=== PATIENT | female | born 1985 | race Caucasian/White ===

== ENCOUNTER 2017-01-22 07:18 | Emergency (ER) | payer SELFPAY ==
[2017-01-22 07:35] VITALS: BP 141/97
--- NOTE | 2017-01-22 08:05 | UC ---
Bhavesh Knapp [place], scribed for [facility] MD on 01/22/17 at 0754 . General HPI - HPI Summary HPI Summary: In Room note: Patient is a 31 y/o female who presents to the with nausea, vomiting, and diarrhea for a couple of days. She reports a fever, but denies urinary sx or back pain. She has vomited twice and had diarrhea once this morning. Pt denies ever being hospitalized. note: VSS, afebrile, elevated bp, pt is not on anti-hypertensive medication, pulse ox : 98; occasional EtOH, former smoker, depression, pt requesting a work note. Visit hx: previous episodes of vomiting and diarrhea. Nurses note: pt has been vommiting and loose stool for 2 days. pt cannot keep anything down. she states her son had the same thing that he got for daycare. pt states she does not want to go to work and needs a doctors note because her employer is requesting it. - History of Current Complaint Chief Complaint: UCGI Stated Complaint: V&D, CONGESTION Time Seen by Provider: 01/22/17 07:38 Hx Obtained From: Patient Onset/Duration: Gradual Onset, Lasting Days, Still Present Timing: Constant Onset Severity: Moderate Current Severity: Moderate Associated Signs & Symptoms: Positive: Diarrhea, Fever, Nausea, Vomiting - Allergy/Home Medications Allergies/Adverse Reactions: Allergies Allergy/AdvReac Type Severity Reaction Status Date / Time Penicillins [PCN] Allergy Severe Rash Verified 07/03/16 10:22 ginko biloba Allergy lip Uncoded 07/03/16 10:22 swelling Home Medications: Home Medications [place] 01/22/17 [History] PMH/Surg Hx/FS Hx/Imm Hx Endocrine History Of: Denies: Diabetes, Thyroid Disease Cardiovascular History Of: Denies: Cardiac Disorders, Hypertension Respiratory History Of: Denies: COPD, Asthma GI/ History Of: Denies: Ulcer Psychological History Of: Reports: Anxiety - Surgical History Surgical History: None - Family History Known Family History: Positive: Hypertension, Diabetes, Other - brother with allergic, "random swelling" - Social History Alcohol Use: Occasionally Substance Use Type: None Smoking Status (MU): Former Smoker Type: Cigarettes Amount Used/How Often: 1 pk/3 days Length of Time of Smoking/Using Tobacco: 5+ years Have You Smoked in the Last Year: No - Immunization History Most Recent Influenza Vaccination: 2010 Most Recent Tetanus Shot: 2013 Most Recent Pneumonia Vaccination: unknown Review of Systems Constitutional: Fever - Subjective. Gastrointestinal: Vomiting, Diarrhea, Other - Nausea. Genitourinary: Negative All Other Systems Reviewed And Are Negative: Yes Physical Exam Triage Information Reviewed: Yes Appearance: Well-Appearing, No Pain Distress, Obese Vital Signs: Initial Vital Signs Temp 97.5 F 01/22/17 07:30 Pulse 76 01/22/17 07:30 Resp 16 01/22/17 07:30 BP 141/97 01/22/17 07:30 Pulse Ox 98 01/22/17 07:30 Vital Signs Reviewed: Yes Eyes: Positive: Conjunctiva Clear ENT: Positive: Hearing grossly normal, Pharynx normal, TMs normal. Negative: Muffled/hoarse voice Neck: Positive: Supple, No Lymphadenopathy Respiratory: Positive: Chest non-tender, Lungs clear, Normal breath sounds, No respiratory distress Cardiovascular: Positive: RRR, No Murmur Abdomen Description: Positive: Nontender, No Organomegaly, Soft. Negative: Peritoneal Signs Bowel Sounds: Positive: Present Musculoskeletal: Positive: Strength Intact Neurological: Positive: Alert Psychological: Positive: Age Appropriate Behavior Skin: Negative: rashes Course/Dx - Course Course Of Treatment: Medications have been included in the original chart and reviewed. Discussed condition with pt and expected resolution in 48 hours. She should recheck it for new sx including temperature or pain. Hypertensive BP reading (>=140/90); patient referred to PCP within 1 day-4 wks for follow-up - Differential Dx - Multi-Symptom Provider Diagnoses: gastroenteritis Discharge - Discharge Plan Condition: Stable Disposition: HOME Patient Education Materials: Gastroenteritis (ED), Acute Nausea and Vomiting ( ED) Forms: *Work Release Referrals: [facility] [place] [facility] [place]Outside] Additional Instructions: Thank you for helping us improve patient care by filling out the My Point Survey. Your blood pressure reading today was 141/97, indicating HYPERTENSION. Establish with a new primary care provider and follow-up within 4 weeks for blood pressure readings and further evaluation. If you cant find a provider, try to check your blood pressure on your own and see if its above 120/80. If so , follow up for further evaluation and treatment. The documentation as recorded by the Bhavesh ramires Salem accurately reflects the service I personally performed and the decisions made by me, Daniel Hurt MD.
== END 2017-01-22 08:06 | disposition home or self-care (01) ==
LOC: UCEAST 07:18
DX: K52.9 Noninfective gastroenteritis and colitis, unspecified (principal); F17.210 Nicotine dependence, cigarettes, uncomplicated
CPT/HCPCS: 99211; G0463

== ENCOUNTER 2017-03-27 09:06 | Emergency (ER) | payer SELFPAY ==
[2017-03-27 09:12] VITALS: BP 132/95
[2017-03-27] MEDS ORDERED: methylPREDNISolone 125 MG* 2 ML VIAL IM ONE (09:26)
[2017-03-27] MEDS ORDERED: diPHENhydraMINE IV* 50 MG/ML 1 ml VIAL (BENADRYL) IM ONE (09:27)
[2017-03-27] MEDS ORDERED: Famotidine TAB* 20 MG PO ONE (09:27)
--- NOTE | 2017-03-27 09:31 | UC ---
Allergic Reaction HPI - HPI Summary HPI Summary: 31 female with hx of allergic reactions reports swelling in bottom lip and beginning to feel slightly "itchy," in hands/arms. States the tongue is beginning to feel tingly, but not swollen. Began this morning. Took Benadryl this am 25mg. Does not know what the reaction is from. No new meds, foods or use of lotions/soaps/detergents. Frequent visits for lip swelling treated with Anti-histamine, Prednisone and Benadryl. Given epi first episode however patient hated how it made her feel and symptoms were more severe. Knows now to receive treatment before symptoms progress and worsen. Denies breathing problems. Breathing "tight" but can breath "pretty good." "Throat fine." PMHx of depression and PCOS however only taking Latuda at this time. - History of Current Complaint Chief Complaint: UCAllergicReaction Stated Complaint: ALLERGIC REACTION Time Seen by Provider: 03/27/17 09:18 Hx Obtained From: Patient Hx Last Menstrual Period: 02/25/17 ?: No Onset/Duration: Sudden Onset Severity Initially: Mild Severity Currently: Mild Pain Scale Used: 0-10 Numeric Character: Swelling - of half of bottom lip Aggrevating Factor(s): Nothing Alleviating Factor(s): OTC Meds - benadryl 25mg Associated Signs And Symptoms: Positive: Rash - Related Hx Possible Reaction To: Other: - unknown - Allergies/Home Medications Allergies/Adverse Reactions: Allergies Allergy/AdvReac Type Severity Reaction Status Date / Time Penicillins [PCN] Allergy Severe Rash Verified 03/27/17 09:11 ginko biloba Allergy lip Uncoded 03/27/17 09:11 swelling Home Medications: Home Medications Lurasidone HCl [Latuda] 1 tab PO DAILY 03/27/17 [History Confirmed 03/27/17] diPHENhydraMINE PO* [Benadryl PO 25 MG TAB*] 1 tab PO Q4HR PRN 03/27/17 [ History Confirmed 03/27/17] PMH/Surg Hx/FS Hx/Imm Hx - Additional Past Medical History Additional PMH: Denies HTN, DM and asthma. Admits to Depression and PCOS Hx - Surgical History Surgical History: None - Family History Known Family History: Positive: Hypertension, Diabetes, Other - brother with allergic, "random swelling" - Social History Alcohol Use: Occasionally Substance Use Type: None Smoking Status (MU): Former Smoker Type: Cigarettes Amount Used/How Often: 1 pk/3 days Length of Time of Smoking/Using Tobacco: 5+ years Have You Smoked in the Last Year: No - Immunization History Most Recent Influenza Vaccination: 2010 Most Recent Tetanus Shot: 2013 Most Recent Pneumonia Vaccination: unknown Vaccination Up to Date: Yes Review of Systems Constitutional: Negative Skin: Rash Eyes: Negative ENT: Other - some swelling of bottom lip Respiratory: Negative Cardiovascular: Negative Gastrointestinal: Negative Musculoskeletal: Negative Psychological: Anxious All Other Systems Reviewed And Are Negative: Yes Physical Exam Triage Information Reviewed: Yes Appearance: Well-Appearing - appears anxious, No Pain Distress, Well-Nourished, Obese Vital Signs: Initial Vital Signs Temp 97.7 F 03/27/17 09:07 Pulse 88 03/27/17 09:07 Resp 18 03/27/17 09:07 BP 132/95 03/27/17 09:07 Pulse Ox 100 03/27/17 09:07 Vital Signs Reviewed: Yes Eyes: Positive: Conjunctiva Clear ENT: Positive: Hearing grossly normal, Pharynx normal - no edema of uvula or tongue at this time, TMs normal, Other: - edema of left side of lower lip. no swelling of eyes of rest of face noted. patent airway. Negative: Tonsillar swelling, Tonsillar exudate, Trismus, Muffled/hoarse voice Neck: Positive: Supple, Nontender, No Lymphadenopathy Respiratory: Positive: Chest non-tender, Normal breath sounds Cardiovascular: Positive: RRR, No Murmur, Pulses Normal, Brisk Capillary Refill Bowel Sounds: Positive: Present Musculoskeletal: Positive: Strength Intact, ROM Intact, No Edema Neurological: Positive: Alert Psychological: Positive: Age Appropriate Behavior Skin: Positive: rashes - some mild urticaria/erythema noted on upper extremities Re-Evaluation - Re-Evaluation First Eval Re-Evaluation Time: 10:10 Change: Improved Comment: patient is feeling better and symptoms have not worsened Allergic Reaction Course/Dx - Course Course Of Treatment: unclear etiology; allergic reaction, localized, v. angioedema. given steroid and benadryl IM, along with famotidine orally. patient was feeling better. will continue these medications at home for 5-7 days. States her lip usually decreases in size after 3 days. waiting for her insurance to kick in within the next 2 weeks to schedule an appointment with press cleaner. Aware of worsening signs and symptoms and to return immediately if symptoms persist, worsen or new symptoms develop. - Differential Dx/Diagnosis Differential Diagnosis/HQI/PQRI: Anaphylaxis, Angioedema, Local Allergic Reaction, Urticaria Provider Diagnoses: local allergic reaction, angioedema Discharge - Discharge Plan Condition: Stable Disposition: HOME Prescriptions: Famotidine TAB* [Pepcid 20 MG TAB*] 20 mg PO DAILY #5 tab diPHENhydraMINE PO* [Benadryl PO 25 MG TAB*] 25 mg PO BID #10 tab predniSONE TAB* [Deltasone TAB*] 40 mg PO DAILY #10 tab Patient Education Materials: General Allergic Reaction (ED), Angioedema (ED) Referrals: No Primary Care Phys,NOPCP [Primary Care Provider] - [facility] [place] [facility] [Outside] Additional Instructions: Take medications as prescribed for the next 5-7 days. Recommend taking prednisone steroid in the morning as it can keep you awake. If new symptoms develop or symptoms persist/worsen please return to UC or ED immediately. Follow up with PCP and press cleaner as soon as you are able.
== END 2017-03-27 10:13 | disposition home or self-care (01) ==
LOC: UCEAST 09:06
DX: T78.40XA Allergy, unspecified, initial encounter (principal); T78.3XXA Angioneurotic edema, initial encounter; Z87.891 Personal history of nicotine dependence; F32.9 Major depressive disorder, single episode, unspecified
CPT/HCPCS: 96372; 99212; A9270-GY; G0463; J1200; J2930

== ENCOUNTER 2018-02-25 14:38 | Emergency (ER) | payer OTHER ==
[2018-02-25 15:28] VITALS: BP 125/91
--- NOTE | 2018-02-25 16:00 | UC ---
Skin Complaint HPI - HPI Summary HPI Summary: Seen in for painful sores on abdomen 02/22/17, diagnosed as infection and treated with TMP-SMX. After starting the antibiotics pt developed red, sore, weeping rash in groin folds and under abdominal crease. Has also had smaller painful bumps come out near armpits. Thinks the abdominal sores look a little better. No new rashes. Swab of sore was positive for MRSA, she was directed to come back for recheck. - History of Current Complaint Chief Complaint: UCRash Time Seen by Provider: 02/25/18 15:34 Stated Complaint: FOLLOW UP Hx Obtained From: Patient Hx Last Menstrual Period: January 24, 2018 ?: No Onset/Duration: Gradual Onset, Lasting Days Timing: Constant Onset Severity: Mild Current Severity: Mild Pain Intensity: 2 Location: Discrete Character: Redness, Painful Aggravating Factor(s): Touch Associated Signs & Symptoms: Positive: Rash, Drainage - Allergy/Home Medications Allergies/Adverse Reactions: Allergies Allergy/AdvReac Type Severity Reaction Status Date / Time Penicillins Allergy Rash Verified 02/25/18 15:28 ginko biloba Allergy lip Uncoded 02/25/18 15:28 swelling Home Medications: Home Medications Norgestimate-Ethinyl Estradiol [Ortho-Cyclen 28 Tablet] 1 tab PO DAILY 02/25/18 [History Confirmed 02/25/18] Review of Systems Constitutional: Negative Skin: Rash Eyes: Negative ENT: Negative Respiratory: Negative Cardiovascular: Negative Gastrointestinal: Negative Genitourinary: Negative Motor: Negative Neurovascular: Negative Musculoskeletal: Negative Neurological: Negative Psychological: Negative Is Patient Immunocompromised?: No All Other Systems Reviewed And Are Negative: Yes PMH/Surg Hx/FS Hx/Imm Hx Previously Healthy: Yes - Surgical History Surgical History: None - Family History Known Family History: Positive: Hypertension, Diabetes, Other - brother with allergic, "random swelling" - Social History Lives: With Family Alcohol Use: Occasionally Substance Use Type: None Smoking Status (MU): Former Smoker Type: Cigarettes Amount Used/How Often: 1 pk/3 days Length of Time of Smoking/Using Tobacco: 5+ years Have You Smoked in the Last Year: No - Immunization History Most Recent Influenza Vaccination: 2010 Most Recent Tetanus Shot: 2013 Most Recent Pneumonia Vaccination: unknown Vaccination Up to Date: Yes Physical Exam Triage Information Reviewed: Yes Appearance: Well-Appearing, No Pain Distress, Obese Vital Signs: Initial Vital Signs Temp 98.8 F 02/25/18 15:24 Pulse 72 02/25/18 15:24 Resp 12 02/25/18 15:24 BP 125/91 02/25/18 15:24 Pulse Ox 100 02/25/18 15:24 Vital Signs Reviewed: Yes Eye Exam: Normal Eyes: Positive: Conjunctiva Clear ENT Exam: Normal ENT: Positive: Normal ENT inspection, Hearing grossly normal, Pharynx normal, TMs normal Dental Exam: Normal Neck exam: Normal Neck: Positive: Supple, Nontender, No Lymphadenopathy Respiratory Exam: Normal Respiratory: Positive: Chest non-tender, Lungs clear, Normal breath sounds, No respiratory distress, No accessory muscle use Cardiovascular Exam: Normal Cardiovascular: Positive: RRR, No Murmur Abdomen Description: Positive: Nontender, Soft Musculoskeletal Exam: Normal Neurological Exam: Normal Neurological: Positive: Alert Psychological Exam: Normal Skin Exam: Other - Healing abscess L lower abd with open sore, slightly oozing. R lower abd firm red 2cm swelling without drainage. Under pannus and in groil folds extensive red skin with erosions and weeping, fairly uniform, with some satellite lesions Course/Dx - Diagnoses Provider Diagnoses: MRSA skin infections, healing. intertrigo in upper groin and under pannus. Eleavted BP due to discomfort Discharge - Sign-Out/Discharge Documenting (check all that apply): Discharge/Admit/Transfer - Discharge Plan Condition: Stable Disposition: HOME Prescriptions: Fluconazole 100 MG TAB* [Diflucan 100 MG TAB*] 100 mg PO SEE INSTRUCTIONS #4 tab Patient Education Materials: Abscess (ED), Skin Yeast Infection (ED), MRSA ( Methicillin-Resistant Staphylococcus Aureus) (ED) Referrals: [facility] [place] [facility] [Outside] Additional Instructions: In addition to the pills, I recommend you treat your skin fold rashes with an antifungal cream and/or powder. Make sure you are drying the areas well after bathing -- use a behavioral science chair if needed. For the MRSA infection, simply finish the bactrim and allow the wounds to heal. Once the skin is fully closed, you can do once-weekly baths with the chlorhexadine gluconate soap. Taking a daily zinc supplement might help as well. Come back at any time if you develop spreading redness, fever, or worsening pain. - Billing Disposition and Condition Condition: STABLE Disposition: Home
== END 2018-02-25 15:59 | disposition home or self-care (01) ==
LOC: UCEAST 14:38
DX: L02.211 Cutaneous abscess of abdominal wall (principal); B95.62 Methicillin resistant Staphylococcus aureus infection as the cause of diseases classified elsewhere; L30.4 Erythema intertrigo; R03.0 Elevated blood-pressure reading, without diagnosis of hypertension; Z88.0 Allergy status to penicillin; Z82.49 Family history of ischemic heart disease and other diseases of the circulatory system; Z83.3 Family history of diabetes mellitus; Z87.891 Personal history of nicotine dependence
CPT/HCPCS: 99212; G0463

== ENCOUNTER 2018-03-20 16:09 | Emergency (ER) | payer OTHER ==
[2018-03-20 16:37] VITALS: BP 148/108
--- NOTE | 2018-03-20 17:57 | UC ---
FLU HPI - HPI Summary HPI Summary: Patient is a 32-year-old otherwise healthy female presenting to the with complaint of extreme fatigue 3 days. Denies any history of anemia. However, she was diagnosed with MRSA approximately 4 weeks ago and was placed on Bactrim 1 week. The MRSA was due to an abscess and she did not have sepsis during this time. She denies any fevers, sweats, chills. She denies any chest pain or shortness of breath. She is not taking any medications at this time. Patient is obese. Also with a history of mono several years prior. Denies any sore throat. Symptoms are aggravated with nothing and alleviated with nothing. She states she was fatigued yesterday, however today was the worst - History of Current Complaint Chief Complaint: UCGeneralIllness Stated Complaint: FATIGUE Time Seen by Provider: 03/20/18 17:00 Hx Obtained From: Patient Hx Last Menstrual Period: 03/03/18 ?: No Onset/Duration: Sudden Onset Severity Currently: Moderate Severity Initially: Moderate Pain Intensity: 0 Pain Scale Used: 0-10 Numeric Associated Signs & Symptoms: Positive: Negative - Risk Factors Influenza Risk Factors: Negative - Allergy/Home Medications Allergies/Adverse Reactions: Allergies Allergy/AdvReac Type Severity Reaction Status Date / Time Penicillins Allergy Rash Verified 03/20/18 16:37 ginko biloba Allergy lip Uncoded 03/20/18 16:37 swelling PMH/Surg Hx/FS Hx/Imm Hx Previously Healthy: Yes - Surgical History Surgical History: None Surgery Procedure, Year, and Place: denies - Family History Known Family History: Positive: Hypertension, Diabetes, Other - brother with allergic, "random swelling" - Social History Occupation: Employed Full-time Lives: With Family Alcohol Use: Occasionally Substance Use Type: None Smoking Status (MU): Former Smoker Type: Cigarettes Amount Used/How Often: 1 pk/3 days Length of Time of Smoking/Using Tobacco: 5+ years Have You Smoked in the Last Year: No - Immunization History Most Recent Influenza Vaccination: 2010 Most Recent Tetanus Shot: 2013 Most Recent Pneumonia Vaccination: unknown Vaccination Up to Date: Yes Review of Systems Constitutional: Fatigue Skin: Negative Eyes: Negative Respiratory: Negative Cardiovascular: Negative Gastrointestinal: Negative Genitourinary: Negative Motor: Negative Neurological: Negative Psychological: Negative Is Patient Immunocompromised?: No All Other Systems Reviewed And Are Negative: Yes Physical Exam Triage Information Reviewed: Yes Appearance: Obese - tearful on exam Vital Signs: Initial Vital Signs Temp 98.3 F 03/20/18 16:32 Pulse 77 03/20/18 16:32 Resp 20 03/20/18 16:32 BP 148/108 03/20/18 16:32 Pulse Ox 100 03/20/18 16:32 Vital Signs Reviewed: No Eye Exam: Normal Eyes: Positive: Conjunctiva Clear Dental Exam: Normal Neck exam: Normal Neck: Positive: Supple, Nontender, No Lymphadenopathy Respiratory Exam: Normal Respiratory: Positive: Chest non-tender, Lungs clear, Normal breath sounds Cardiovascular Exam: Normal Cardiovascular: Positive: RRR Musculoskeletal Exam: Normal Musculoskeletal: Positive: Strength Intact Neurological Exam: Normal Neurological: Positive: Alert Psychological: Positive: Normal Response To Family Skin Exam: Normal Flu Course/Dx - Course Course Of Treatment: During the course of treatment, the patient is evaluated for extreme fatigue. I have offered a mono test to which she declines as this will not change her course of treatment. She denies any abdominal pain, urinary symptoms, back pain, fevers, sweats, chills, chest pain or shortness of breath. This likely could be anemia, but she does not have a history of such and denies any extreme vaginal bleeding. She states she took in a home test yesterday which was negative. She states other than her extreme fatigue, she denies any other symptoms. She endorses some body aches yesterday , but denies this today. I have stated this is likely due to a viral illness and is most likely not related to her MRSA. Her vital signs are stable other than a slightly elevated high blood pressure which is likely secondary to anxiety during her visit. I will give her a note for work 2 days but she will follow-up with her PCP or return to the ED if she develops fevers, sweats, chills, bleeding, worsening fatigue or any additional symptoms. She agrees with this plan and is okay for discharge at this time. - Differential Dx/Diagnosis Provider Diagnoses: Fatigue Discharge - Sign-Out/Discharge Documenting (check all that apply): Patient Departure - Discharge Plan Condition: Stable Disposition: HOME Patient Education Materials: Fatigue (ED) Forms: *Work Release Referrals: No Primary Care Phys,NOPCP [Primary Care Provider] - Additional Instructions: Please follow up with your PCP If you develop fevers, sweats, chills, worsening body aches or other symptoms, go to the ED Sleep as much as possible. Drink plenty of fluids Do not take in excess caffeine - Billing Disposition and Condition Condition: STABLE Disposition: Home
== END 2018-03-20 17:30 | disposition home or self-care (01) ==
LOC: UCEAST 16:09
DX: R53.83 Other fatigue (principal); E66.9 Obesity, unspecified; Z88.0 Allergy status to penicillin; Z91.048 Other nonmedicinal substance allergy status; Z87.891 Personal history of nicotine dependence
CPT/HCPCS: 99211; G0463

== ENCOUNTER 2019-09-10 07:57 | Emergency (ER) | payer OTHER ==
[2019-09-10] MEDS ORDERED: diPHENhydraMINE IV* 50 MG/ML 1 ml VIAL (BENADRYL) IM ONE ×2 (08:08→08:12)
[2019-09-10] MEDS ORDERED: methylPREDNISolone 125 MG* 2 ML VIAL IM ONE (08:09)
--- NOTE | 2019-09-10 08:10 | UC ---
Allergic Reaction HPI - HPI Summary HPI Summary: Arrives with upper and lower lip swelling. Currently taking cephalexin for dental infection, 2 doses yesterday. Hx of rash and swelling with past penicillin, and anaphylaxis in the past with ginko biloba. She did have a dental cleaning yesterday in addition to beginning cephalexin. She has had evaluation in the past and was negative for sleep apnea. No shortness of breath or chest pain. - History of Current Complaint Stated Complaint: SWOLLEN MOUTH Time Seen by Provider: 09/10/19 08:07 Hx Obtained From: Patient Hx Last Menstrual Period: 03/03/18 Onset/Duration: Sudden Onset, Gradual Onset Severity Initially: Mild Severity Currently: Moderate Location: Discrete @ - both lips Character: Swelling Aggravating Factor(s): Nothing Alleviating Factor(s): Nothing - did not take antihistamines Associated Signs And Symptoms: Positive: Negative - Related Hx Possible Reaction To: Medications - Allergies/Home Medications Allergies/Adverse Reactions: Allergies Allergy/AdvReac Type Severity Reaction Status Date / Time cephalexin [From Keflex] Allergy Swelling Verified 09/10/19 08:03 Of Face,Lips,& Throat Penicillins Allergy Rash Verified 03/20/18 16:37 ginko biloba Allergy lip Uncoded 03/20/18 16:37 swelling PMH/Surg Hx/FS Hx/Imm Hx Previously Healthy: Yes - overweight - Surgical History Surgical History: None Surgery Procedure, Year, and Place: denies - Family History Known Family History: Positive: Hypertension, Diabetes, Other - brother with allergic, "random swelling" - Social History Occupation: Employed Full-time Alcohol Use: Occasionally Substance Use Type: None Smoking Status (MU): Former Smoker Type: Cigarettes Amount Used/How Often: 1 pk/3 days Length of Time of Smoking/Using Tobacco: 5+ years Have You Smoked in the Last Year: No - Immunization History Most Recent Influenza Vaccination: 2010 Most Recent Tetanus Shot: 2013 Most Recent Pneumonia Vaccination: unknown Vaccination Up to Date: Yes Review of Systems All Other Systems Reviewed And Are Negative: Yes Constitutional: Positive: Negative Skin: Positive: Other - lip swelling Eyes: Positive: Negative ENT: Positive: Negative Respiratory: Positive: Negative. Negative: Shortness Of Breath Cardiovascular: Negative: Palpitations, Chest Pain Gastrointestinal: Positive: Negative Genitourinary: Positive: Negative Motor: Positive: Negative Neurovascular: Positive: Negative Musculoskeletal: Positive: Negative Neurological: Positive: Negative Psychological: Positive: Negative Is Patient Immunocompromised?: No Physical Exam Triage Information Reviewed: Yes Appearance: Other: - mildly anxious, overweight. No urtiucaria. Eyes: Positive: Conjunctiva Clear ENT Exam: Other - Diffuse lower lip swelling, tongue without swelling. Gums healthy. ENT: Positive: Pharynx normal - grade 2 airway, TMs normal Neck: Positive: Supple, Nontender, No Lymphadenopathy Respiratory: Positive: Lungs clear, Normal breath sounds Cardiovascular: Positive: RRR, No Murmur Musculoskeletal Exam: Normal Neurological Exam: Normal Neurological: Positive: Alert, Muscle Tone Normal Psychological Exam: Normal Skin Exam: Normal Re-Evaluation - Re-Evaluation First Eval Re-Evaluation Time: 08:45 Change: Improved - Improved swelling, feels better and is in no respiratory distress. Allergic Reaction Course/Dx - Course Course Of Treatment: Discontinue cephalexin and begin clindamycin tomorrow for dental infection. Please advise your dentist of the reaction. Begin prednisone tomorrow. Take a long acting antihistamine such as cetirazine 10mg or fexofenadine 180mg once daily for a week to decrease reaction. Use benadryl 25mg every 4 to 6 hours as needed. Follow up with direct support staff as advised to evaluate reactions - Differential Dx/Diagnosis Differential Diagnosis/HQI/PQRI: Angioedema, Local Allergic Reaction, Urticaria Provider Diagnosis: Allergic angioedema Discharge ED - Sign-Out/Discharge Documenting (check all that apply): Patient Departure All imaging exams completed and their final reports reviewed: No Studies - Discharge Plan Condition: Stable Disposition: HOME Prescriptions: Clindamycin Cap(NF) [Clindamycin Cap 300 mg Cap(NF)] 300 mg PO TID #21 cap predniSONE [Prednisone 20 MG TAB] 2 mg PO DAILY #10 tablet Patient Education Materials: General Allergic Reaction (ED) Referrals: Susan Moore MD [Primary Care Provider] - Iveth Shah MD [Medical Doctor] - Additional Instructions: Discontinue cephalexin and begin clindamycin tomorrow for dental infection. Please advise your dentist of the reaction. Begin prednisone tomorrow. Take a long acting antihistamine such as cetirazine 10mg or fexofenadine 180mg once daily for a week to decrease reaction. Use benadryl 25mg every 4 to 6 hours as needed. Follow up with direct support staff as advised to evaluate reactions - Billing Disposition and Condition Condition: STABLE Disposition: Home
[2019-09-10 08:11] VITALS: BP 128/77
== END 2019-09-10 09:20 | disposition home or self-care (01) ==
LOC: UCEAST 07:57
DX: T78.3XXA Angioneurotic edema, initial encounter (principal); K08.89 Other specified disorders of teeth and supporting structures; T36.1X5A Adverse effect of cephalosporins and other beta-lactam antibiotics, initial encounter; E66.3 Overweight; Y92.9 Unspecified place or not applicable; Z91.09 Other allergy status, other than to drugs and biological substances; Z88.1 Allergy status to other antibiotic agents; Z88.0 Allergy status to penicillin; Z87.891 Personal history of nicotine dependence
CPT/HCPCS: 99212; G0463; J1200; J2930